=== PATIENT | female | born 1985 | race Caucasian/White ===

== ENCOUNTER 2016-12-12 22:51 | Emergency (ER) | payer SELFPAY ==
[~2016-12-12] VITALS: Ht 167.6 cm; Wt 74.8 kg
[2016-12-12 23:30] VITALS: BP 134/67
[2016-12-13] MEDS ORDERED: NAPR500T PO (00:08)
--- NOTE | 2016-12-13 00:08 | PHYS DOC ---
Past Medical History Past Medical History: Anxiety, Bipolar, Depression Additional Past Medical Histor: OCD, bipolar disorder, polycystic ovarian syndrome, depression, anxiety, Alcohol Use: None Drug Use: None Adult General Chief Complaint Chief Complaint: WRIST PAIN HPI HPI Impression is a pleasant 31-year-old female who is walking quickly their garage and slipped and fell landing on her right side of her body striking the right knee, right wrist right elbow on the ground. She denies loss of consciousness, she denies neck pain, denies shortness of breath chest pain abdominal pain at this time. Patient complains mainly of right wrist pain with range of motion at the wrist. There is no numbness and tingling of the fingers or wrist. There is pain radiating from the pinky finger all the way to the lateral aspect of the distal ulna. She also complains of lateral elbow pain with localized tissue swelling. Pain is worse with range of motion and direct pressure over the elbow itself. Pain in her wrist as an 8 of 10. Pain in her elbow is a 6 of 10. Review of Systems Review of Systems Constitutional: Denies fever or chills [] Eyes: Denies change in visual acuity, redness, or eye pain [] HENT: Denies nasal congestion or sore throat [] Respiratory: Denies cough or shortness of breath [] Cardiovascular: No additional information not addressed in HPI [] GI: Denies abdominal pain, nausea, vomiting, bloody stools or diarrhea [] : Denies dysuria or hematuria [] Musculoskeletal: She does complain of right elbow pain right wrist pain and right finger. Integument: Denies rash or skin lesions [] Neurologic: Denies headache, focal weakness or sensory changes [] Endocrine: Denies polyuria or polydipsia [] Physical Exam Physical Exam Constitutional: Well developed, well nourished, no acute distress, non-toxic appearance. [] Neck: Normal range of motion, no tenderness, supple, no stridor. [] Cardiovascular:Heart rate regular rhythm, no murmur [] Lungs & Thorax: Bilateral breath sounds clear to auscultation [] Skin: Warm, dry, no erythema, no rash. [] Back: No tenderness, Extremities: Patient demonstrates tenderness to palpation over the right aspect of the wrist with no obvious deformity is. There is some soft tissue swelling and marked tenderness to palpation of the distal ulna. Patient has tenderness to palpation over the proximal phalanx of the distal pinky. There is no obvious deformity there is no loss of sensation. She has +2 capillary refill is brisk +2 +2 peripheral pulses at the ulnar and radial pulses well. Patient has mild soft tissue swelling measuring 1 cm x 2 cm in width and length of lateral aspect of the elbow. There is no obvious deformity. She has decreased range of motion secondary to pain but no pain with axial loading into the joint itself. Neurologic: Alert and oriented X 3, normal motor function, normal sensory function, no focal deficits noted. [] Psychologic: Affect normal, judgement normal, mood normal. [] EKG EKG [] Radiology/Procedures Radiology/Procedures [] Course & Med Decision Making Course & Med Decision Making Pertinent Labs and Imaging studies reviewed. (See chart for details) Patient's 3 view review elbow films reveal Coopernt time 2352 there is no fracture, no soft tissue swelling. No foreign body noted. No subcutaneous air. 3 views of the right wrist read by Dr. Sepulveda time 11:50 PM demonstrate no fracture, no soft tissue swelling no foreign body noted no some tenderness air. Joint space within normal limits 3 view x-ray of the hand right read by Dr. Sepulveda negative for fracture. No soft tissue swelling no foreign body noted. Patient with no head injury she is on Klonopin but is lucid without evidence of head injury. He does not meet criteria to require head CT at this time. Precautions given. Impression: Wrist contusion and sprain, elbow contusion.: Disposition: PCP follow-up for wound management and care. [] Dragon Disclaimer Dragon Disclaimer This electronic medical record was generated, in whole or in part, using a voice recognition dictation system. Departure Departure Impression: Primary Impression: Right wrist sprain Additional Impressions: Contusion, elbow, with forearm Sprain, finger Disposition: 01 HOME, SELF-CARE Condition: IMPROVED Patient Instructions: Elbow Contusion, Wrist Sprain with Rehab-Sports[facility] Additional Instructions: please return for any new or increasing symptoms or if you have any questions or concerns. Please ice and elevate your wounds using the Naprosyn and oral pain medications to treat your symptoms. Scripts Naproxen (NAPROSYN) 500 Mg Tablet 1 TAB PO BID, #14 TAB 1 Refill Prov: CECIL SEPULVEDA MD 12/13/16 Problem Qualifiers CECIL SEPULVEDA MD Dec 13, 2016 00:08
[2016-12-13] MEDS ORDERED: ACETAMINOPHEN 325 MG TABLET. PO ONE (00:30)
--- NOTE | 2016-12-13 08:25 | RAD ---
Indication pain associated with a fall. AP oblique and lateral views of the right hand were obtained. No bony abnormality is seen
--- NOTE | 2016-12-13 08:27 | RAD ---
Indication wrist pain. 2 oblique views of the right wrist in the lateral view were obtained. A true AP view was not obtained. (An AP view of the hand, incorporating the wrist, is noted which is the subject of a separate dictation) No bony abnormality is seen
--- NOTE | 2016-12-13 08:29 | RAD ---
Indication pain associated with a fall. AP oblique and lateral views of the right elbow were obtained. No bony abnormality is seen. No significant joint fluid is seen
== END 2016-12-13 00:24 | disposition home or self-care (01) ==
LOC: ER 22:51
DX: S63.501A Unspecified sprain of right wrist, initial encounter (principal); S63.619A Unspecified sprain of unspecified finger, initial encounter; S50.01XA Contusion of right elbow, initial encounter; E28.2 Polycystic ovarian syndrome; F31.9 Bipolar disorder, unspecified; F41.9 Anxiety disorder, unspecified; F42.9 Obsessive-compulsive disorder, unspecified; W01.0XXA Fall on same level from slipping, tripping and stumbling without subsequent striking against object, initial encounter; Y93.01 Activity, walking, marching and hiking; Y92.89 Other specified places as the place of occurrence of the external cause; Y99.8 Other external cause status
CPT/HCPCS: 29125; 73080; 73110; 73130; 99284-25